=== PATIENT | female | born 1930 | race Caucasian/White ===

== ENCOUNTER 2017-10-26 23:10 | Observation (INO) | payer OTHER ==
--- NOTE | 2017-10-26 23:19 | CPEKG ---
Heart Rate: 172 RR Interval: 349 QRSD Interval: 120 QT Interval: 296 QTC Interval: 501 P [place]: 0 QRS [place]: 16 T Wave [place]: 174 EKG Severity - ABNORMAL ECG - EKG Impression: SUPRAVENTRICULAR TACHYCARDIA EKG Impression: INCOMPLETE LEFT BUNDLE BRANCH BLOCK EKG Impression: PROBABLE LVH WITH SECONDARY REPOL ABNRM EKG Impression: ST DEPRESSION, PROBABLY RATE RELATED Electronically Signed By: Abraham Cai 27-Oct-2017 23:35:30
--- NOTE | 2017-10-26 23:26 | CPEKG ---
Heart Rate: 96 RR Interval: 625 P-R Interval: 176 QRSD Interval: 128 QT Interval: 416 QTC Interval: 526 P [place]: 73 QRS [place]: -2 T Wave [place]: 120 EKG Severity - ABNORMAL ECG - EKG Impression: SINUS RHYTHM EKG Impression: LEFT BUNDLE BRANCH BLOCK Electronically Signed By: Abraham Cai 27-Oct-2017 23:35:30
[2017-10-26 23:32] LABS: % IMMATURE GRANULYOCYTES 0.1 % (0.0-1.1); ABSOLUTE IMMATURE GRANULOCYTES 0.01 10^3/uL (0.00-0.10); ADD DIFF? NO; ADD MORPH? NO; ADD SCAN? NO; ATYPICAL LYMPHOCYTE FLAG 0 (0-99); FRAGMENT RBC FLAG 0 (0-99); HEMATOCRIT 42.8 % (38.0-47.0); HEMOGLOBIN 15.1 g/dL (12.6-16.3); LEFT SHIFT FLG 0 (0-99); LIPEMIA HEMOLYSIS FLAG 90 (0-99); MEAN CELL HEMOGLOBIN 30.1 pg (27.9-34.1); MEAN CELL HEMOGLOBIN CONCENTR. 35.3 g/dL (32.4-36.7); MEAN CELL VOLUME 85.4 fL (81.5-99.8); MEAN PLATELET VOLUME 8.8 fL (8.7-11.7); PLATELET CLUMPS FLAG 10 (0-99); PLATELET COUNT 260 10^3/uL (150-400); RED BLOOD CELL COUNT 5.01 10^6/uL (4.18-5.33); RED CELL DISTRIBUTION WIDTH 13.2 % (11.5-15.2)
[2017-10-26 23:40] LABS: ANION GAP 12 mEq/L (8-16); CALCIUM 9.6 mg/dL (8.5-10.4); CARBON DIOXIDE 24 mEq/l (22-31); CHLORIDE 95 mEq/L (97-110); GLOMERULAR FILTRATION RATE 53; GLUCOSE 120 mg/dL (70-100); POTASSIUM 3.3 mEq/L (3.5-5.2); SODIUM 131 mEq/L (134-144)
--- NOTE | 2017-10-26 23:49 | EDPHY ---
H & P Stated Complaint: rapid hr no cp 30 min Time Seen by Provider: 10/26/17 23:18 HPI/ROS: Chief Complaint: Palpitations HPI: 87-year-old woman began having a rapid heart rate about 45 min prior to arrival. Patient states she was at rest when this started. Does not have a history of the same. Has some mild associated shortness of breath. No chest pain. No nausea or vomiting. Did have flu-like illness about a week ago but has been feeling well since. No nausea or vomiting. No leg pain or swelling. ROS: 10 point Review of Systems is negative except as noted in the HPI. PMH: Hypertension Social History: No smoking, no alcohol, no recreational drug use Family History: non-contributory Physical Exam: Gen: Awake, Alert, No Distress HEENT: Nose: no rhinorrhea Eyes: PERRLA, EOMI Mouth: Moist mucosa Neck: Supple, no JVD Chest: nontender, lungs clear to auscultation Heart: Tachycardic, regular Abd: Soft, non-tender, no guarding Back: no CVA tenderness, no midline tenderness Ext: no edema, non-tender Skin: no rash Neuro: CN II-XII intact, Sensation grossly intact, Strength 5/5 in bilateral upper and lower extremities - Personal History Current Tetanus/Diphtheria Vaccine: Yes Current Tetanus Diphtheria and Acellular Pertussis (TDAP): Yes - Medical/Surgical History Hx Asthma: No Hx Chronic Respiratory Disease: No Hx Diabetes: No Hx Cardiac Disease: No Hx Renal Disease: No Hx Cirrhosis: No Hx Alcoholism: No Hx HIV/AIDS: No Hx Splenectomy or Spleen Trauma: No Other PMH: THYROID, HTN,GALLBLADDER, HYSTERECT,L WRIST, TONSIL, FUCHES DYSTROPHY - Social History Smoking Status: Never smoked Constitutional: Initial Vital Signs Temperature (C) 36.6 C 10/26/17 23:10 Heart Rate 176 H 10/26/17 23:10 Respiratory Rate 20 10/26/17 23:10 Blood Pressure 116/80 10/26/17 23:10 O2 Sat (%) 89 L 10/26/17 23:10 O2 Delivery Mode Room Air O2 (L/minute) 2 Allergies/Adverse Reactions: amoxicillin [Amoxicillin] Allergy (Mild, Verified 10/26/17 23:47) Itching Penicillins Allergy (Mild, Verified 10/26/17 23:47) Itching Home Medications: Medication Instructions Recorded Methyldopa 04/12/15 Synthroid 04/12/15 Valsartan 10/26/17 Medical Decision Making - Diagnostics EKG Interpretation: ECG 1: Time 11:16 p.m. narrow complex tachycardia with a rate of 172. There are no P waves. Symptoms consistent with SVT ECG 2. Time 11:24 p.m. sinus rhythm with a rate of 96, normal axis, normal intervals, there is a left bundle branch block. This is new compared to most recent ECG which was in April of 2007. ED Course/Re-evaluation: 87-year-old woman with an episode of SVT. This converted with valsalva maneuvers. Repeat ECG shows a left bundle branch block. Her most recent ECG in the system is from 10 years ago. It is unclear if this is a new left bundle branch or not. Plan for admission given new left bundle branch block. - Data Points Laboratory Results: Laboratory Results 10/26/17 23:20 10/26/17 23:20 10/26/17 10/26/17 23:20 23:20 WBC 8.88 10^3/uL 10^3/uL (3.80-9.50) RBC 5.01 10^6/uL 10^6/uL (4.18-5.33) Hgb 15.1 g/dL g/dL (12.6-16.3) Hct 42.8 % % (38.0-47.0) MCV 85.4 fL fL (81.5-99.8) MCH 30.1 pg pg (27.9-34.1) MCHC 35.3 g/dL g/dL (32.4-36.7) RDW 13.2 % % (11.5-15.2) Plt Count 260 10^3/uL 10^3/uL (150-400) MPV 8.8 fL fL (8.7-11.7) Neut % (Auto) 38.7 % L % (39.3-74.2) Lymph % (Auto) 49.2 % H % (15.0-45.0) [place] % (Auto) 8.1 % % (4.5-13.0) Eos % (Auto) 2.9 % % (0.6-7.6) Baso % (Auto) 1.0 % % (0.3-1.7) Nucleat RBC Rel Count 0.0 % % (0.0-0.2) Absolute Neuts (auto) 3.43 10^3/uL 10^3/uL (1.70-6.50) Absolute Lymphs (auto) 4.37 10^3/uL H 10^3/uL (1.00-3.00) Absolute Monos (auto) 0.72 10^3/uL 10^3/uL (0.30-0.80) Absolute Eos (auto) 0.26 10^3/uL 10^3/uL (0.03-0.40) Absolute Basos (auto) 0.09 10^3/uL 10^3/uL (0.02-0.10) Absolute Nucleated RBC 0.00 10^3/uL 10^3/uL (0-0.01) Immature Gran % 0.1 % % (0.0-1.1) Immature Gran # 0.01 10^3/uL 10^3/uL (0.00-0.10) Sodium 131 mEq/L L mEq/L (134-144) Potassium 3.3 mEq/L L mEq/L (3.5-5.2) Chloride 95 mEq/L L mEq/L (97-110) Carbon Dioxide 24 mEq/l mEq/l (22-31) Anion Gap 12 mEq/L mEq/L (8-16) BUN 16 mg/dL mg/dL (7-23) Creatinine 1.0 mg/dL mg/dL (0.6-1.0) Estimated GFR 53 Glucose 120 mg/dL H mg/dL (70-100) Calcium 9.6 mg/dL mg/dL (8.5-10.4) Troponin I < 0.012 ng/mL ng/mL (0.000-0.034) Departure - Departure Disposition: [facility] In[facility] Acute Clinical Impression: SVT (supraventricular tachycardia), Left bundle branch block Condition: Fair Referrals: Antoinette Eckert MD [Primary Care Provider] - As per Instructions
[2017-10-26 23:52] LABS: TROPONIN I < 0.012 ng/mL (0.000-0.034)
[2017-10-27] MEDS ORDERED: ONDANSETRON 4 MG/2 ML VIAL IVP PRN (01:20)
[2017-10-27] MEDS ORDERED: ACETAMINOPHEN 325 MG TAB PO PRN (01:20)
[2017-10-27] MEDS ORDERED: PROTOCOL MAGNESIUM 1 DOSE IV PRN (01:24)
[2017-10-27] MEDS ORDERED: PROTOCOL POTASSIUM 1 DOSE MISC PRN (01:24)
[2017-10-27] MEDS ORDERED: PROTOCOL K PHOSPHATE 1 DOSE IV PRN (01:24)
[2017-10-27] MEDS ORDERED: NS 1,000 ML IV SCH (01:30)
[2017-10-27] MEDS ORDERED: POTASSIUM CL 20 MEQ TAB PO ONE (03:24)
[2017-10-27] MEDS: METHYLDOPA 250 MG TAB PO SCH ×3 (04:02→20:37)
--- NOTE | 2017-10-27 05:55 | GHP ---
[f rep st] HISTORY AND PHYSICAL DATE OF ADMISSION: 10/27/2017 SOURCE: Patient provides history, is quite reliable. Daughter at bedside and supplements history. CHIEF COMPLAINT: Palpitations. HISTORY OF PRESENT ILLNESS: This is a very pleasant 87-year-old female with past medical history sig nificant for benign essential hypertension, hypothyroidism, and GERD, who presents to the emergency d [facility] today with complaints of sudden onset of palpitations with associated shortness of breath. Patient denies any chest pain during any of these events. She does report some lightheadedness but no syncope. Patient reports that she had experienced a little bit of numbness, tingling in both of h er feet bilaterally. Patient without any recent orthopnea, PND, or lower extremity edema. She does report some swelling in her legs during summer months, but otherwise denies currently. Patient was s itting up by the table this evening writing her [employer] cards when she developed sudden onset of he r palpitations. She waited approximately 3-4 minutes before calling her daughter who lives down the road and brought the patient to the emergency department within one-half hour of her symptoms. Margarita cleveland was noted to be in SVT with heart rate in the 170s. She converted back to normal sinus rhythm fol lowing attempts with vagal maneuvers. EKG was significant for new left bundle branch block with prev ious EKG available for review from 2006 only. Again, patient denies any chest pain. REVIEW OF SYSTEMS: GENERAL: Patient reports 3 weeks ago she developed URI symptoms with cough, rhin orrhea, congestion. These symptoms have resolved. SKIN: Patient denies any rashes or sores. ENT: Patient with resolved sore throat and rhinorrhea as above. Patient without any changes in vision. Does wear glasses for reading. CV: See HPI. RESPIRATORY: No shortness of breath or unresolved cou gh. GI: No nausea, vomiting, abdominal pain. No diarrhea. : No dysuria or hematuria. 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 NEURO: Patient denies any current headache. No focal deficits. She did experience numbness, tingling in her feet bilaterally during this episode, which has since resolved. PSYCH: Patient denies any anxiety, depression. Rem ainder of review of systems negative except as noted above. ALLERGIES: Penicillin. HOME MEDICATIONS: Methyldopa 250 mg p.o. daily, Synthroid 80 mcg p.o. daily and valsartan daily. Scooter braun does not recall the dose. PAST MEDICAL HISTORY: Significant for hypertension, hypothyroidism and GERD. PAST SURGICAL HISTORY: Significant for tonsillectomy and adenoidectomy, hysterectomy, appendectomy, cholecystectomy, multiple ERCPs with dilation, tonsillectomy, adenoidectomy, cataract surgery bilater ally and cornea surgery for removal of membrane. FAMILY HISTORY: Brother with history of pacer. SOCIAL HISTORY: Patient lives with her . She does not smoke or drink or do drugs. CODE STATUS: The patient's MDPOA is her daughter at bedside, Shaylee Merrill. CODE STATUS: Full. PHYSICAL EXAMINATION: VITAL SIGNS: Upon arrival to the emergency department, blood pressure is 116/ 80, heart rate 176, respiratory rate 20, O2 saturation 99% on 2 L. Repeated vitals available: Blood pressure 153/93, heart rate is 87, respiratory rate 16, O2 saturation 96% on room air. GENERAL: No acute distress, very pleasant elderly female sitting up in bed. Her daughter is at bedside. HEAD: Normocephalic, atraumatic. EYES: Extraocular muscles are intact. Pupils equal, round, react to li ght bilaterally and symmetric. No scleral icterus or conjunctival injection. ENT: Mucous membranes appear moist. No oropharyngeal erythema or exudate. NECK: Supple. Trachea midline. CV: Regular rate and rhythm without any murmurs, rubs, or gallops. No chest wall tenderness to palpation. RESP IRATORY: Lungs clear to auscultation bilaterally. No wheezes, rales, or rhonchi. Unlabored breathi ng. ABDOMEN: Obese, soft, nontender to palpation. No rebound, guarding, or masses appreciated. : No suprapubic tenderness to palpation. No Tejada catheter in place. EXTREMITIES: Patient with tr ammon nonpitting edema bilateral lower legs. Patient with 1+ pedal pulses bilaterally and symmetric. Some chronic skin changes are present. NEURO: Cranial nerves II through XII intact. Grossly nonfoc al. No facial drooping. She moves all extremities and sits up independently. Strength overall is n ormal. PSYCH: Patient is awake, alert, and oriented x4. She is interactive, appropriate. LABORATORY STUDIES: WBC 8.8, H and H of 50.1 and 42.8, MCV is 85.4, platelet count 260, no bands. S odium is 131, potassium 3.3, chloride 95, CO2 24, anion gap 12, BUN 16, creatinine is 1.0, estimated GFR 53, glucose 120, calcium 9.6. Troponin is negative. EKG reviewed myself. SVT 170 with incomplete left bundle branch block. Possible LVH with repolar ab normalities. Diffuse ST depression likely related to rate. QT 296. Repeated EKG showing normal sinus rhythm with a left bundle branch block. ASSESSMENT AND PLAN: Pleasant 87-year-old female who presents to the emergency department with palpi tations. 1. SVT. Patient converted with vagal maneuvers. She is currently on losartan and methyldopa at [facility]. Blood pressure is acceptable. Patient also noted with a new left bundle branch block. She denie s any chest pain. No palpitation. No hypoxia currently. She does have a history of recent illness. Low risk for PE. Patient reports she has been on multiple antihypertensives with variable affects. Cardiology will be consulted in the morning for further recommendations. Echocardiogram has been o rdered. 2. Left bundle branch block. Most recent available EKG for comparison is already 10 years old, whic h relative to that is new. Again, patient without any complaints of chest pain or history thereof. Echo in the morning. Cardiology consult as above. 3. Hyponatremia. Possibly due to some hypovolemia in setting of recent viral illness versus SIADH o r other. Patient will receive some gentle hydration overnight. Will also replace her other electrol ytes including correction for hypokalemia. Hypochloridemia with fluids. 4. Hyperglycemia. This is mildly elevated in setting of a nonfasting lab. Will plan to repeat in t he morning and will allow for permissive hyperglycemia in this very pleasant 87-year-old elderly lady . 5. Hypothyroidism. Continue patient's levothyroxine. 6. Benign essential hypertension. Again, patient reports she has been on multiple variations of ant ihypertensives. She has found that losartan and methyldopa are what has worked best for her. Her bl ood pressures are elevated at time of interview, and she did not receive her evening dose of methyldo pa, which we will resume. 7. Fluid, electrolyte, nutrition. Cardiac diet with electrolyte replacement ordered as above. 8. Prophylaxis. SCDs and Lovenox. 9. Code status is full. Patient with advanced directives. Her daughter, Shaylee Merrill, is MDPOA. DISPOSITION: Patient has been admitted to observation on the PCU floor for close telemetry priyanka zuñiga /[id number]/MODL
[2017-10-27 06:00] LABS: % IMMATURE GRANULYOCYTES 0.2 % (0.0-1.1); ABSOLUTE IMMATURE GRANULOCYTES 0.01 10^3/uL (0.00-0.10); ADD DIFF? NO; ADD MORPH? NO; ADD SCAN? NO; ATYPICAL LYMPHOCYTE FLAG 10 (0-99); FRAGMENT RBC FLAG 0 (0-99); HEMATOCRIT 40.8 % (38.0-47.0); HEMOGLOBIN 14.5 g/dL (12.6-16.3); LEFT SHIFT FLG 0 (0-99); LIPEMIA HEMOLYSIS FLAG 90 (0-99); MEAN CELL HEMOGLOBIN 30.4 pg (27.9-34.1); MEAN CELL HEMOGLOBIN CONCENTR. 35.5 g/dL (32.4-36.7); MEAN CELL VOLUME 85.5 fL (81.5-99.8); MEAN PLATELET VOLUME 8.9 fL (8.7-11.7); PLATELET CLUMPS FLAG 0 (0-99); PLATELET COUNT 212 10^3/uL (150-400); RED BLOOD CELL COUNT 4.77 10^6/uL (4.18-5.33); RED CELL DISTRIBUTION WIDTH 13.2 % (11.5-15.2)
[2017-10-27 06:12] LABS: ANION GAP 9 mEq/L (8-16); CALCIUM 9.2 mg/dL (8.5-10.4); CARBON DIOXIDE 26 mEq/l (22-31); CHLORIDE 102 mEq/L (97-110); CREATININE 0.9 mg/dL (0.6-1.0); GLOMERULAR FILTRATION RATE 59; GLUCOSE 93 mg/dL (70-100); MAGNESIUM 1.9 mg/dL (1.6-2.3); POTASSIUM 3.7 mEq/L (3.5-5.2); SODIUM 137 mEq/L (134-144)
[2017-10-27 06:23] LABS: CREATINE KINASE-MB FRACTION 1.86 ng/mL (0.00-3.19); TROPONIN I 0.315 ng/mL (0.000-0.034)
[2017-10-27] MEDS ORDERED: ASPIRIN 325 MG TAB PO ONE (06:49)
[2017-10-27] MEDS ORDERED: POTASSIUM CL 10 MEQ TAB PO ONE (10:47)
[2017-10-27] MEDS: ENOXAPARIN 40 MG/0.4 ML SYR SC SCH (12:06)
--- NOTE | 2017-10-27 12:46 | ASMTCMCOM ---
CM Note CM Note Notes: 10/27/2017 Case Management Note Reviewed chart, discussed with RN. There are no case management d/c needs identified d/t pt marital status, supportive daughter and activity levels prior to admission. Case Management d/c poc: home with family support when medically stable. Case Management available if needs change. Date Signed: 10/27/2017 12:45 PM Electronically Signed By:Sandra Wallace RN
[2017-10-27] MEDS ORDERED: NON-FORMULARY NEW DRUG (Valsartan/Hydrochlorothiazide [Valsartan-Hctz 320-25 Mg Tab] 1 EAC PO SCH (15:15)
[2017-10-27] MEDS: ASPIRIN 81 MG CHEWABLE TAB PO SCH (15:39)
[2017-10-27] MEDS: VALSARTAN 160 MG TAB PO SCH (15:40)
[2017-10-27] MEDS: LEVOTHYROXINE 88 MCG TAB PO SCH (15:41)
--- NOTE | 2017-10-27 16:10 | ECHO ---
[email or web address] [address] [address] Main: [phone] Fax: Transthoracic Echocardiogram Name: ORLANDO GARNER MR#: [id number] Study Date: 10/27/2017 Study Time: 11:36 AM Date of : 1930 Age: 87 year(s) Height: 162.6 cm (64 in.) Weight: 79.38 kg (175 lb.) BSA: 1.85 m2 Gender: Female Examination: Echo Indication: Supraventricular Tachycardia, New LBBB Image Quality: Contrast: Requested by: Eleanor Summers BP: 158 mmHg/94 mmHg Heart Rate: Rhythm: Left bundle branch block Indication: Supraventricular Tachycardia, New LBBB Procedure Staff Assistant Scientist: Bereket [place] Reading Physician: Moisés Davila Requesting Provider: Conclusions: Normal size left ventricle. Normal global systolic LV function. EF is 68 %. No regional wall motion abnormality. Diastolic dysfunction is present. . Trivial mitral valve regurgitation. No pericardial effusion. Measurements: Chambers Valvular Assessment AV/MV Valvular Assessment TV/PV Normal Normal Normal Name Value Range Name Value Range Name Value Range Ao Jayla (MM): 3.0 cm (2.2 cm-3.7 AV Vmax: 1.55 m/s (1 m/s-1.7 TR Vmax: 2.76 mm/s ( - ) cm) m/s) TR PGmax: 30 mmHg ( - ) IVSd (2D): 1.0 cm (0.6 cm-1.1 AV maxP mmHg ( - ) syst. PAP: 35 mmHg ( - ) cm) LVOT Vmax: 1.00 m/s (0.7 m/s-1.1 PV Vmax: 0.86 m/s (0.6 m/s-0.9 LVDd (2D): 4.5 cm (3.9 cm-5.3 m/s) m/s) cm) MV E Vmax: 0.61 m/s ( - ) PV PGmax: 3 mmHg ( - ) LVDs (2D): 2.8 cm (2.1 cm-4 MV A Vmax: 1.01 m/s ( - ) cm) MV E/A: 0.60 ( - ) LVPWd (2D): 1.1 cm ( - ) LVEF (2D): 68 (>=54 %) Continued Measurements: Chambers Valvular Assessment AV/MV Valvular Assessment TV/PV Name Value Name Value Name Value LADs Lon.8 cm MV E' Septal: 0.04 m/s CVP (est.): 5 mmHg LA Area: 12.8 cm2 MV E/E' Septal: 15.30 Patient: ORLANDO GARNER Study Date: 10/27/2017 Page 1 of 2 11:36 AM LA Volume: 27 ml MV E/E' Lateral: 5.90 LA Volume Index: 14.6 ml/m2 Findings: Left Ventricle: Normal size left ventricle. No LV hypertrophy. Normal global systolic LV function. EF is 68 %. No regional wall motion abnormality. Diastolic dysfunction is present. . Right Ventricle: Normal size right ventricle. Normal RV function. Left Atrium: The left atrium is normal in size. Right Atrium: The right atrium is normal in size. Mitral Valve: The mitral valve is normal in appearance and function. Trivial mitral valve regurgitation. Aortic Valve: The aortic valve is tri-leaflet. The aortic valve is normal in appearance and function. Tricuspid Valve: The tricuspid valve is normal in appearance and function. Pulmonic Valve: The pulmonic valve is normal in appearance and function. Aorta: The aorta is normal. Pericardium: No pericardial effusion. (No Signature Object) Patient: ORLANDO GARNER Study Date: 10/27/2017 Page 2 of 2 11:36 AM [id number]
[2017-10-27 16:25] LABS: POTASSIUM 4.5 mEq/L (3.5-5.2); TROPONIN I 0.167 ng/mL (0.000-0.034)
[2017-10-27] MEDS: HYDROCHLOROTHIAZIDE 25 MG TAB PO SCH (16:40)
[2017-10-27] MEDS: DILTIAZEM CD 120 MG CAP PO SCH (16:59)
--- NOTE | 2017-10-27 19:02 | HOSPPROG ---
Hospitalist Progress Note Assessment/Plan: DIAGNOSES: -symptomatic SVT, terminated by Valsalva maneuvers in the ER -no recurrence of SVT here in the hospital -chronic hypertension I have reviewed her case in detail today with Dr. Moisés Davila. He believes that she will do fine with some diltiazem. We discussed her elevated cardiac troponins which is transient and likely related to her severe tachycardia. It would be prudent to do a myocardial perfusion imaging study with stress, though this could be done as an outpatient her stable setting. Dr. Davila felt the patient could be discharged today. I reviewed with the patient and her family and they would prefer to observe further overnight here especially as she is taking a new medication. The patient's family had many questions at the patient had side, and I spent approximately 40 min reviewing her clinical condition, treatment plan and answering their questions. PLANS: -addition of diltiazem 100 mg daily as recommended by Dr. Davila -continue to observe on playground monitor overnight and monitor blood pressure closely to make sure she remains in good range with those numbers on medicine -for now continue her usual blood pressure medicines though they mean need to be decreased if she has a significant decrease with the diltiazem SUBJECTIVE: Feels much better today, no recurrence of last night symptoms. Ambulating hallways with these, no shortness of breath, eating well OBJECTIVE Vitals reviewed: Stable throughout her stay here so far [employer] Lead, my review: Sinus rhythm throughout her stay here so far on the heart monitor unit Exam: alert oriented skin warm dry color ok resps not labored lungs clear BSs heart regular abd soft nondistended nontender, bowel sounds present limbs warm, no edema iv site ok Laboratory data: Minimal elevation of troponin otherwise stable chemistries Objective: Vital Signs Temp Pulse Resp BP Pulse Ox 36.4 C 81 22 H 167/101 H 92 10/27/17 16:00 10/27/17 16:00 10/27/17 16:00 10/27/17 16:00 10/27/17 16:00 Laboratory Results 10/27/17 05:55 10/27/17 15:34 10/26/17 10/27/17 10/28/17 06:59 06:59 06:59 Intake Total 800 Balance 800 - Time Spent With Patient Time Spent with Patient: greater than 35 minutes Time Spent with Patient: Greater than 35 minutes spent on this patients care, greater than 50% of time spent counseling, educating, and coordinating care regarding the above mentioned plan. ICD10 Worksheet Patient Problems: Problems Problem Status Onset Left bundle branch block Acute SVT (supraventricular tachycardia) Acute chronic disease mgmt/ transitional care Acute
--- NOTE | 2017-10-28 03:44 | GCON ---
[f rep st] CONSULTATION CARDIOLOGY CONSULTATION DATE OF CONSULTATION: 10/27/2017 REFERRING PHYSICIAN: Eleanor Summers MD REASON FOR CONSULTATION: Supraventricular tachycardia. HISTORY: The patient is an 87-year-old woman with no prior cardiac history. She was sitting at her table making out Ish cards when she developed sudden onset of a noticeably rapid heart rate. T here was no associated chest discomfort, shortness of breath, or lightheadedness. She had experience d a similar episode approximately a year ago that lasted for only a few minutes. Her palpitations pe rsisted and she contacted her daughter, who came to her home and transported her to the emergency issa m at [facility]. Her initial ECG demonstrated tachycardia at 172 bpm with an incom plete left bundle branch block. With vagal maneuvers, she converted to sinus rhythm with a left bund le branch block. She was admitted for observation on telemetry. Overnight, she has had no recurrent arrhythmia episodes. Her troponin increased slightly. PAST MEDICAL HISTORY: She has a history of hypertension, hypothyroidism, gastroesophageal reflux, an d mild arthritis. PAST SURGICAL HISTORY: Includes tonsils and adenoids, hysterectomy, appendectomy, cholecystectomy, a nd ERCP procedures. FAMILY HISTORY: Noncontributory. MEDICATIONS: Her home medications consist of aspirin 81 mg daily, valsartan/hydrochlorothiazide 320/ 25 mg daily, methyldopa 250 mg twice daily, and Synthroid 88 mcg daily. ALLERGIES: Penicillin and amoxicillin. SOCIAL HISTORY: She is a retired registered nurse. She has adult offspring in the area. She lives independently with her . She does not smoke or consume significant amounts of alcohol. REVIEW OF SYSTEMS: Apart from the palpitations that prompted this hospital encounter, a 10-point rev iew was negative. PHYSICAL EXAMINATION: VITAL SIGNS: Heart rate in the 80s with sinus rhythm on the monitor. Blood p ressure 167/101. GENERAL: Well developed, well nourished, woman in no acute distress. She is alert and oriented x3. She provides an excellent clinical history. HEAD AND NECK: No scleral icterus. M ucous membranes moist. Carotid pulses 2+ without bruits. There is no JVD. CHEST: Lung [place] r to auscultation. CARDIAC: Regular rate and rhythm with normal S1, S2. There is no murmur or gall op. ABDOMEN: Soft, nontender, nondistended, with normal bowel sounds. EXTREMITIES: 2+ pulses and no peripheral edema. LABORATORY STUDIES: Sodium 137, potassium 3.7, BUN and creatinine 14 and 0.9. Troponin has come jenni k at less than 0.012, 0.315, and 0.167. Her TSH is normal at 1.23. Her CBC is normal. Her admissio n potassium was slightly low at 3.3. ECHOCARDIOGRAM: Normal left ventricular size and systolic function. Diastolic dysfunction noted. N ormal-appearing valvular structures. Trace mitral regurgitation. No pericardial effusion. IMPRESSION: This is a healthy 87-year-old woman with a history of hypertension. She presents with a documented episode of supraventricular tachycardia. She converted with vagal maneuvers. She has no t had any recurrent arrhythmia. Her small troponin increase is likely secondary to subendocardial is chemia related to myocardial oxygen supply/demand mismatch in the setting of her tachycardia. Certai nly, the possibility of underlying CAD should be considered. Her echocardiogram demonstrates normal left ventricular function and no valvular heart disease. RECOMMENDATIONS: Would add diltiazem CD 120 mg daily to her medication regimen. I think she can be discharged from the hospital. I will have the office staff at [facility] contact her to arrange f or a followup visit. Her mild hypokalemia is likely secondary to the hydrochlorothiazide component o f her blood pressure medication. If the addition of diltiazem improves her blood pressure control, c onsideration might be given to discontinuing the diuretic component of her regimen. Alternatively, s he could be placed on a low-dose potassium supplement. Will plan for a pharmacologic nuclear stress test in the outpatient setting. /[id number]/MODL
[2017-10-28 05:22] LABS: MAGNESIUM 1.9 mg/dL (1.6-2.3); POTASSIUM 4.3 mEq/L (3.5-5.2)
[2017-10-28] MEDS: LEVOTHYROXINE 88 MCG TAB PO SCH (06:29)
[2017-10-28 08:05] VITALS: BP 132/76; PULSE 74; RESP 12; TEMP 97.8; O2SAT 92
[2017-10-28] MEDS: HYDROCHLOROTHIAZIDE 25 MG TAB PO SCH (08:42)
[2017-10-28] MEDS: ASPIRIN 81 MG CHEWABLE TAB PO SCH (08:42)
[2017-10-28] MEDS: METHYLDOPA 250 MG TAB PO SCH (08:42)
[2017-10-28] MEDS: DILTIAZEM CD 120 MG CAP PO SCH (08:42)
[2017-10-28] MEDS: VALSARTAN 160 MG TAB PO SCH (08:42)
[2017-10-28] MEDS: ENOXAPARIN 40 MG/0.4 ML SYR SC SCH (08:52)
--- NOTE | 2017-10-28 09:58 | PDCARPN ---
Cardiology Progress Note Assessment/Plan: Supraventricular Tachycardia: No further episodes. - Diltiazem CD 120 mg daily will be added to her regimen. - EP service consult if she has persistent recurrences of SVT. Hypertension: By her report, it sounds as if her blood pressure is marginally controlled. Hopefully diltiazem will improve her readings. - If her blood pressure improves significantly, perhaps the HCTZ component of her combination valsartan/HCTZ could be eliminated which could help avoid hypokalemia. Disposition: Stable for discharge. - The office staff an older heart has been instructed to contact her to arrange a followup appointment with me. 10/28/17 09:52 Subjective: No complaints. Reviewed/Discussed With: hospitalist Objective: Vital Signs (8 Hrs) Temp Pulse Resp BP Pulse Ox 10/28/17 08:00 36.6 C 74 12 132/76 H 92 10/28/17 04:00 36.8 C 69 16 128/72 H 96 Intake/Output (24 Hrs) 10/27/17 10/28/17 10/29/17 05:59 05:59 05:59 Intake Total 2800 Balance 2800 Intake: Oral (ml) 2800 IV Infused (ml) 0 Other: Weight 79.379 kg 86 kg Number of Voids Toilet 3 Number of Stools Toilet 1 Result Diagrams: 10/27/17 05:55 10/28/17 03:57 Cardiac Labs: Cardiac Lab Results (72 Hrs) 10/27/17 10/27/17 15:34 05:55 CK-MB (CK-2) Fraction 1.86 Troponin I 0.167 H 0.315 H - Physical Exam Constitutional: no apparent distress Eyes: anicteric sclera Ears, Nose, Mouth, Throat: moist mucous membranes Cardiovascular: regular rate and rhythm, no murmurs, no rubs, no gallops Respiratory: clear to auscultate bilat Gastrointestinal: normoactive bowel sounds, no tenderness, no masses Skin: no rashes, no edema Neurologic: AAOx3 Psychiatric: not anxious ICD10 Worksheet Patient Problems: Problems Problem Status Onset Left bundle branch block Acute SVT (supraventricular tachycardia) Acute chronic disease mgmt/ transitional care Acute
--- NOTE | 2017-10-28 10:08 | PDDCSUM ---
Discharge Summary Discharge Summary: DISCHARGE DIAGNOSES: -rapid and symptomatic supraventricular tachycardia, resolved with Valsalva maneuver -uncontrolled chronic hypertension CONSULTANTS: Dr. Moisés Davila PROCEDURES: Echocardiogram which showed no concerning abnormalities HOSPITAL COURSE SUMMARY: This patient presented to the hospital with near syncopal symptoms and had rapid SVT heart rate in the 170s. This was aborted in the emergency room with Valsalva maneuvers. There is no evidence of cardiac ischemia or heart failure and her echocardiogram was unremarkable. She was watched on click of a cardiac laboratory monitor and had no concerning arrhythmia is after her ER presentation. She her blood pressures were a bit high. Diltiazem was added to help with blood pressure control and to help control arrhythmia. She tolerated this well. There been no other concerning issues or complications. She is stable for discharge to home. She will follow up with Dr. Davila in clinic. She is advised to stay with a low-salt diet. She will monitor blood pressures at home PENDING TEST RESULTS: None MEDICATION CHANGES: Addition of diltiazem 120 mg daily FOLLOW-UP PLAN: Dr. Davila later this month in Cardiology Clinic Greater than 35 minutes bedside and care coordination time today
--- NOTE | 2017-10-29 15:50 | ASDISCHSUM ---
Discharge Information Plan Status:Home with No Needs Medically Cleared to Leave: Discharge Date:10/28/2017 12:16 PM CM D/C Disposition:Home, Routine, Self-Care ADT D/C Disposition:Home, Routine, Self-Care Projected Discharge Date:10/28/2017 12:16 PM Transportation at D/C: Discharge Delay Reason: Follow-Up Date:10/28/2017 12:16 PM Discharge Slot: Final Diagnosis: Placement Information Patient Contact Information Contact Name:BIJU Relationship: Address:[address] City:[place] Alternate Phone: [facility]/Zip Code:[place] [address] Email: Financial Information Financial Class: Primary Plan Desc:MEDICARE OUTPATIENT Primary Plan Number:[id number] Secondary Plan Desc:CLAY PPO Secondary Plan Number:[id number] Assessment Information BC CM Progress Note CM Note CM Note Notes: 10/27/2017 Case Management Note Reviewed chart, discussed with RN. There are no case management d/c needs identified d/t pt marital status, supportive daughter and activity levels prior to admission. Case Management d/c poc: home with family support when medically stable. Case Management available if needs change. Date Signed: 10/27/2017 12:45 PM Electronically Signed By:Sandra Wallace RN Intervention Information Intervention Type:*TESFAYE-Signed Date of Service:10/27/2017 09:04 AM Patient Type:Observation Staff Member:Ginger Montalvo Hours: Discipline: Severity: Comment:
== END 2017-10-28 12:16 | disposition home or self-care (01) ==
LOC: F2W 10-27 07:49
PROVIDERS: ADMIT Family Medicine; ATTEND Internal Medicine
PROC: 3E033RZ Introduction of Antiarrhythmic into Peripheral Vein, Percutaneous Approach (ICD-10-PCS; principal; 2017-10-26)
DX: I47.1 Supraventricular tachycardia (principal); I10 Essential (primary) hypertension; R73.9 Hyperglycemia, unspecified; E87.1 Hypo-osmolality and hyponatremia; I44.7 Left bundle-branch block, unspecified; E03.9 Hypothyroidism, unspecified; K21.9 Gastro-esophageal reflux disease without esophagitis; Z79.82 Long term (current) use of aspirin
CPT/HCPCS: 93005; 93306; 99285; G0378; J1650